=== PATIENT | male | born 1980 | race Caucasian/White ===

== ENCOUNTER → 2019-03-31 06:36 | Outpatient (CLI) | payer OTHER, SELFPAY ==
--- NOTE | 2019-03-31 | DI.MRI.S_ITS ---
PROCEDURE: MR ELBOW RT WO CON INDICATIONS: M25.621 TECHNIQUE: Noncontrast coronal proton density fast spin echo and T2 fast spin echo with fat saturation, axial and sagittal T1 spin echo and T2 fast spin echo with fat saturation through the elbow. COMPARISON: None. FINDINGS: Image quality: Excellent. Lateral structures: The lateral ulnar collateral ligament and radial collateral ligament both appear intact. The overlying common extensor tendon also appears normal. Medial structures: The ulnar collateral ligament appears slightly thickened at its proximal insertion.. The overlying common flexor tendon appears thickened with heterogeneous fluid signal suggestive of tendinosis and low-grade partial-thickness tear. The ulnar nerve appears normal in size and signal within the cubital tunnel. Anterior structures: The biceps and brachialis tendons both appear intact as they insert onto the proximal radius and ulna, respectively. No bicipitoradial bursal fluid. The median and radial neurovascular bundles appear normal; no focal muscle atrophy to suggest nerve impingement. Posterior structures: The conjoint triceps tendon from the long and lateral heads appears intact. The medial head of the triceps tendon also appears normal, with direct muscle insertion onto the olecranon. No olecranon bursal fluid. Bone and cartilage: No bone marrow contusions or fractures. No osteochondral injuries. IMPRESSION: 1. Suggestion of tendinosis and low-grade partial-thickness tear involving the common flexor tendon origin and sprain/low-grade partial-thickness tear involving proximal ulnar collateral ligament suggestive of medial epicondylitis. 2. No marrow edema. No fracture or dislocation. Rest of elbow tendons and ligaments are intact. Dictated by: Cecilio Watt M.D. on 03/31/2019 at 11:03 Approved by: Cecilio Watt M.D. on 03/31/2019 at 11:32
== END ==
PROVIDERS: Visit Provider General Practice
DX: M25.621 Stiffness of right elbow, not elsewhere classified (principal)
CPT/HCPCS: 73221